=== PATIENT | female | born 1990 | race Caucasian/White ===

== ENCOUNTER 2018-07-06 09:22 | Emergency (ER) | payer OTHER ==
[~2018-07-06] VITALS: Ht 165.1 cm; Wt 70.5 kg
[~2018-07-06 09:22] MED LIST: ENDOCET 5-3251 EACH PO; IBUPROFEN800 MG PO; PRENATAL TABLE1 EAC3 PO
[2018-07-06 09:58] LABS: BASOPHIL (%) 0.3 % (0-1); EOSINOPHIL (%) 0.2 % (0-5); HEMATOCRIT 40.5 % (36.0-46.0); HEMOGLOBIN 13.9 G/DL (11.9-15.5); IMMATURE GRANULOCYTE (%) 0.3 % (0.0-0.7); LYMPHOCYTE (%) 12.1 % (15-42); LYMPHOCYTE COUNT 1.3 K/uL (1.0-2.8); MCHC 34.3 G/DL (30.0-36.0); MCV 87.3 FL (83-99); MONOCYTE (%) 6.1 % (3-12); MONOCYTE COUNT 0.6 K/uL (0-0.8); NEUTROPHIL COUNT 8.5 K/uL (1.8-6.4); PLATELET COUNT 168 K/uL (156-360); RBC DIS.WIDTH-CV 11.9 % (11.8-14.6); RBC DIS.WIDTH-SD 38.5 % (39-53); RED BLOOD COUNT 4.64 M/uL (3.80-5.20); WHITE BLOOD COUNT 10.5 K/uL (4.1-10.2)
[2018-07-06 10:06] LABS: ALBUMIN 4.2 g/dL (3.2-4.8); CHLORIDE 107 mEq/L (99-109); POTASSIUM 4.4 mEq/L (3.7-5.4); SODIUM 138 mEq/L (136-147)
[2018-07-06 10:09] LABS: GLUCOSE 99 mg/dL (70-99); TOTAL PROTEIN 7.1 g/dL (6.4-8.3)
[2018-07-06 10:11] LABS: TOTAL BILIRUBIN 0.8 mg/dL (0.0-1.0)
[2018-07-06 10:12] LABS: ALKALINE PHOSPHATASE 66 IU/L (3-129); CREATININE 0.8 mg/dL (0.6-1.3); GFR ESTIMATE (CALCULATED) > 59 mL/min/
[2018-07-06 10:13] LABS: UREA NITROGEN (BUN) 7 mg/dL (9-23)
[2018-07-06 10:14] LABS: AST (GOT) 16 IU/L (2-34)
[2018-07-06 10:15] LABS: ALT (GPT) 14 IU/L (3-49)
[2018-07-06 10:16] LABS: LIPASE 11 U/L (1.0-51.0)
[2018-07-06 10:22] LABS: QUANTITATIVE HCG < 4.0 MIU/ML
[2018-07-06 11:23] LABS: APPEARANCE CLEAR ((CLEAR)); BILIRUBIN NEGATIVE; BLOOD NEGATIVE; COLOR STRAW ((YELLOW)); GLUCOSE (STRIP) NEGATIVE; KETONES 5; LEUKOCYTES NEGATIVE; NITRITE NEGATIVE; PROTEIN (STRIP) NEGATIVE; SPECIFIC GRAVITY 1.006 (1.000-1.030); UCUL ADDED? NO; UROBILINOGEN 0.2 MG/DL (0.2-1.0)
[2018-07-06] MEDS ORDERED: FLAGYL500 MG PO (13:31)
[2018-07-06] MEDS ORDERED: DOXYCYCLINE HY100 MG PO (13:31)
[2018-07-06] MEDS ORDERED: ULTRAM50 MG PO (13:31)
[2018-07-06] MEDS ORDERED: ZOFRAN ODT4 MG PO (13:31)
[2018-07-06 14:09] VITALS: BP 119/70
== END 2018-07-06 14:20 | disposition home or self-care (01) ==
LOC: EME 09:22
PROVIDERS: Emergency Medicine
DX: K57.32 Diverticulitis of large intestine without perforation or abscess without bleeding (principal); N83.8 Other noninflammatory disorders of ovary, fallopian tube and broad ligament; Z87.891 Personal history of nicotine dependence
CPT/HCPCS: 74177; 76856; 80053; 81003; 83690; 84702; 85025; 99281; 99285; J1885; J7030